=== PATIENT | female | born 1990 | race Caucasian/White ===

== ENCOUNTER 2021-08-21 11:24 | Emergency (ER) | payer OTHER ==
[2021-08-21 11:40] VITALS: BMI 23.0
[2021-08-21 12:01] LABS: HCG,QUALITATIVE URINE Negative
[2021-08-21] MEDS ORDERED: ONDANSETRON 4 MG/2 ML VIAL IVPUSH ONE (12:31)
[2021-08-21] MEDS ORDERED: SODIUM CHLORIDE 0.9% 500 ML INFUS.BAG IV ONE (12:32)
[2021-08-21] MEDS ORDERED: ACETAMINOPHEN 1000 MG/100 ML VIAL (NON FORMULARY) IVPB ONE (12:34)
[2021-08-21] MEDS ORDERED: ONDANSETRON 4 MG/2 ML VIAL ONE (12:38)
[2021-08-21] MEDS ORDERED: ACETAMINOPHEN INJECTION 100 ML IVPB ONE (12:38)
[2021-08-21 13:13] LABS: ALBUMIN 4.3 g/dl (3.4-5.0); BASO % 1.4 % (0-2.0); BILIRUBIN,TOTAL 1.1 mg/dl (0.2-1); CREATININE 0.6 mg/dl (0.55-1.3); EOS % 0.5 % (0-4.5); HEMATOCRIT 36.4 % (32.4-45.2); HEMOGLOBIN 12.3 GM/dl (10.7-15.3); LYMPH % 17.2 % (8-40); MCHC 33.8 g/dl (32.0-36.0); MEAN CELL VOLUME 91.6 fl (80-96); MEAN PLT VOLUME 8.1 fl (7.5-11.1); MONO % 6.8 % (3.8-10.2); NEUT % 74.1 % (42.8-82.8); PLATELET COUNT 350 10^3/uL (134-434); RBC 3.98 M/mm3 (3.60-5.2); RDW 12.3 % (11.6-15.6); TOT PROT 7.7 g/dl (6.4-8.2); WHITE BLOOD COUNT 9.7 K/mm3 (4.0-10.8)
[2021-08-21 15:00] VITALS: BP 116/69; PULSE 85; TEMP 98.9
== END 2021-08-21 15:04 | disposition home or self-care (01) ==
LOC: FER 11:24
PROC: 3E0333Z Introduction of Anti-inflammatory into Peripheral Vein, Percutaneous Approach (ICD-10-PCS; principal; 2021-08-21)
PROC: 3E033GC Introduction of Other Therapeutic Substance into Peripheral Vein, Percutaneous Approach (ICD-10-PCS; 2021-08-21)
DX: R10.32 Left lower quadrant pain (principal)
CPT/HCPCS: 36415; 74177-TC; 80053; 81003; 81015; 84703; 85025; 87086; 87186; 87491; 87591; 99285-25; J0131

== ENCOUNTER 2021-11-16 08:14 | Emergency (ER) | payer OTHER ==
[2021-11-16 08:52] VITALS: BP 106/63; PULSE 97; TEMP 98.8; BMI 22.6
[2021-11-16 09:44] LABS: EPITHELIAL CELLS FEW /hpf
[2021-11-16 09:45] LABS: URINE AMORPHOUS SEDIMENT 3+
[2021-11-16 10:17] LABS: BASO % 0.5 % (0-2.0); EOS % 0.9 % (0-4.5); HEMATOCRIT 34.8 % (32.4-45.2); HEMOGLOBIN 12.1 GM/dL (10.7-15.3); MCH 31.5 pg (25.7-33.7); MCHC 34.6 g/dl (32.0-36.0); MEAN CELL VOLUME 90.9 fl (80-96); MEAN PLT VOLUME 8.1 fl (7.5-11.1); MONO % 5.5 % (3.8-10.2); NEUT % 72.1 % (42.8-82.8); PLATELET COUNT 303 10^3/uL (134-434); RBC 3.83 M/mm3 (3.60-5.2); RDW 12.9 % (11.6-15.6); WHITE BLOOD COUNT 9.4 K/mm3 (4.0-10.0)
== END 2021-11-16 11:23 | disposition home or self-care (01) ==
LOC: FER 08:14
DX: O20.0 Threatened abortion (principal); Z3A.12 12 weeks gestation of pregnancy
CPT/HCPCS: 36415; 76801-TC; 81003; 81015; 84702; 85025; 86850; 86900; 86901; 99284-25

== ENCOUNTER 2022-06-04 01:07 | Inpatient (IN) | payer OTHER ==
[2022-06-04] MEDS ORDERED: AMPICILLIN SODIUM 2 GM VIAL ONE (02:11)
[2022-06-04] MEDS ORDERED: LIDOCAINE HCL 1% PRESERVATIVE FREE - 30ML VIAL ONE (02:25)
[2022-06-04] MEDS ORDERED: OXYTOCIN 20 UNITS in 0.9% NS 20 UNIT/1,000 ML INFUS.BAG IV ONE (02:25)
[2022-06-04] MEDS ORDERED: ELECTROLYTE-148 SOLN 1,000 ML IV SCH (03:00)
[2022-06-04 03:08] VITALS: BMI 28.3
[2022-06-04 03:39] LABS: BASO % 0.4 % (0-2.0); EOS % 0.5 % (0-4.5); HEMATOCRIT 33.1 % (32.4-45.2); HEMOGLOBIN 11.2 GM/dL (10.7-15.3); LYMPH % 18.5 % (8-40); MCH 30.6 pg (25.7-33.7); MCHC 33.7 g/dl (32.0-36.0); MEAN CELL VOLUME 90.9 fl (80-96); MONO % 6.3 % (3.8-10.2); NEUT % 74.3 % (42.8-82.8); PLATELET COUNT 327 10^3/uL (134-434); RBC 3.65 M/mm3 (3.60-5.2); RDW 13.8 % (11.6-15.6); WHITE BLOOD COUNT 12.9 K/mm3 (4.0-10.0)
[2022-06-04 03:48] LABS: INR 0.99 (0.83-1.09); PROTHROMBIN TIME (PATIENT) 11.4 SEC (9.7-13.0)
[2022-06-04 03:51] LABS: ACTIVATED PTT 27.9 SECONDS (25.2-36.5)
[2022-06-04 03:58] LABS: CALCIUM 8.7 mg/dL (8.5-10.1)
[2022-06-04 03:59] LABS: BLOOD UREA NITROGEN 9.5 mg/dL (7-18)
[2022-06-04 04:02] LABS: CREATININE 0.6 mg/dL (0.55-1.3)
[2022-06-04] MEDS ORDERED: WITCH HAZEL 50% (TUCKS) 40 PAD/JAR PAD TP PRN (04:59)
[2022-06-04] MEDS ORDERED: BENZOCAINE 28 GM HEMORRHOIDAL OINTMENT TP PRN (04:59)
[2022-06-04] MEDS ORDERED: BENZOCAINE 20% 57 GM BOTTLE TP PRN (04:59)
[2022-06-04] MEDS ORDERED: BISACODYL 10 MG SUPP.RECT RC PRN (04:59)
[2022-06-04] MEDS: IBUPROFEN 600 MG TABLET (FP) PO PRN ×2 (05:00→15:40)
[2022-06-04] MEDS ORDERED: OXYTOCIN 20 UNITS in 0.9% NS 20 UNIT/1,000 ML INFUS.BAG IV SCH (05:00)
[2022-06-04] MEDS: ACETAMINOPHEN 325 MG TABLET (FP) PO PRN (09:22)
[2022-06-05] MEDS: IBUPROFEN 600 MG TABLET (FP) PO PRN (02:15)
[2022-06-05] MEDS: ACETAMINOPHEN 325 MG TABLET (FP) PO PRN (08:24)
[2022-06-05 11:41] LABS: BASO % 0.6 % (0-2.0); EOS % 0.9 % (0-4.5); HEMATOCRIT 31.5 % (32.4-45.2); HEMOGLOBIN 10.5 GM/dL (10.7-15.3); LYMPH % 15.2 % (8-40); MCH 30.5 pg (25.7-33.7); MCHC 33.3 g/dl (32.0-36.0); MEAN CELL VOLUME 91.8 fl (80-96); NEUT % 76.3 % (42.8-82.8); PLATELET COUNT 324 10^3/uL (134-434); RBC 3.44 M/mm3 (3.60-5.2); RDW 13.8 % (11.6-15.6); WHITE BLOOD COUNT 10.2 K/mm3 (4.0-10.0)
[2022-06-05] MEDS ORDERED: SENNOSIDES/DOCUSATE COMBO (SENNA PLUS) TABLET (UD) PO PRN (22:00)
[2022-06-06] MEDS: IBUPROFEN 600 MG TABLET (FP) PO PRN (00:23)
[2022-06-06 09:00] VITALS: BP 95/60; PULSE 75; TEMP 98.2
== END 2022-06-06 14:40 | disposition home or self-care (01) | DRG 560 ==
LOC: JLDR 01:07 → J3W 06:15
PROVIDERS: ADMIT Student in an Organized Health Care Education/Training Program; ATTEND Student in an Organized Health Care Education/Training Program
PROC: 10E0XZZ Delivery of Products of Conception, External Approach (ICD-10-PCS; principal; 2022-06-04)
PROC: 0HQ9XZZ Repair Perineum Skin, External Approach (ICD-10-PCS; 2022-06-04)
DX: O70.0 First degree perineal laceration during delivery (principal); Z3A.40 40 weeks gestation of pregnancy; Z37.0 Single live birth
CPT/HCPCS: 36415; 59409; 80048; 85025; 85610; 85730; 86780; 86850; 86900; 86901; C9803-CS; U0003; U0005

== ENCOUNTER 2023-02-05 09:22 | Emergency (ER) | payer OTHER ==
[2023-02-05 09:32] VITALS: BP 120/80; PULSE 100; RESP 16; TEMP 97.8; BMI 21.0
[2023-02-05] MEDS ORDERED: TETRACAINE 0.5% HCL 0.6ML DROPPER.BOTTLE OD ONE (09:36)
[2023-02-05] MEDS ORDERED: FLUORESCEIN NA 1 EA STRIP ONE (09:41)
[2023-02-05] MEDS ORDERED: TETRACAINE 0.5% OPHTH SOLN 2 ML BOTTLE ONE (09:41)
[2023-02-05] MEDS ORDERED: FLUORESCEIN NA 1 EA STRIP OD ONE (10:03)
[2023-02-05] MEDS ORDERED: ERYTHROMYCIN 0.5% OPHTHALMIC OINTMENT 3.5 GM TUBE OD STA (10:04)
[2023-02-05] MEDS ORDERED: ERYTHROMYCIN 0.5% OPHTHALMIC OINTMENT 3.5 GM TUBE ONE (10:05)
== END 2023-02-05 10:19 | disposition home or self-care (01) ==
LOC: FER 09:22
DX: S05.01XA Injury of conjunctiva and corneal abrasion without foreign body, right eye, initial encounter (principal); W50.4XXA Accidental scratch by another person, initial encounter
CPT/HCPCS: 99283-25